=== PATIENT | male | born 1955 | race Caucasian/White ===

== ENCOUNTER 2017-07-23 20:36 | Emergency (ER) | payer BC ==
[~2017-07-23] VITALS: Ht 180.3 cm; Wt 81.6 kg
[2017-07-23] MEDS ORDERED: DEXAMETHASONE SOD PHOS 10 MG/1 ML VIAL INJ ONE (21:30)
[2017-07-23] MEDS ORDERED: CLINDAMYCIN PHOS 600 MG/ 4 ML VIAL IM ONE (21:30)
[2017-07-23] MEDS ORDERED: CEFTRIAXONE SOD 1 GM VIAL IM ONE (21:45)
[2017-07-23] MEDS ORDERED: CEFTRIAXONE SOD 1 GM VIAL ONE (21:47)
[2017-07-23] MEDS ORDERED: LIDOCAINE HCL 1% LOCAL INJ 20 ML VIAL ONE (21:48)
[2017-07-23 22:29] VITALS: BP 160/94
== END 2017-07-23 22:36 | disposition home or self-care (01) ==
LOC: ER 20:36
DX: K12.2 Cellulitis and abscess of mouth (principal); I10 Essential (primary) hypertension; Z85.47 Personal history of malignant neoplasm of testis
CPT/HCPCS: 99282; J0696; J1100; J2001

== ENCOUNTER 2018-01-14 13:07 | Observation (INO) | payer BC ==
[~2018-01-14] VITALS: Ht 180.3 cm; Wt 83.0 kg
[2018-01-14] MEDS ORDERED: ASPIRIN 81 MG CHEW TAB PO ONE ×2 (13:45→15:30)
[2018-01-14 13:48] LABS: BASOPHILS % 0.6 % (0.0-1.0); EOSINOPHILS # (AUTO) 0.1 (0.0-0.4); EOSINOPHILS % 1.7 % (0.0-6.0); HEMATOCRIT 48.6 % (38.2-49.6); HEMOGLOBIN 16.6 g/dL (14.0-18.0); LYMPHOCYTES % 28.3 % (18.0-39.1); MEAN CORPUSCULAR HGB CONC 34.2 g/dL (31-35); MEAN CORPUSCULAR VOLUME 93.6 fL (81-99); MONOCYTES # (AUTO) 0.6 (0.2-0.8); MONOCYTES % 8.4 % (4.4-11.3); NEUTROPHILS # (AUTO) 4.2 (2.1-6.9); NEUTROPHILS % 60.4 % (38.7-80.0); PLATELET COUNT 206 x10e3/uL (140-360); RED BLOOD COUNT 5.19 x10e6/uL (4.3-5.7); RED CELL DISTRIBUTION WIDTH 12.8 % (11.7-14.4)
[2018-01-14 13:52] LABS: INR 1.13; PROTHROMBIN TIME 13.6 seconds (11.9-14.5)
[2018-01-14 13:53] LABS: PARTIAL THROMBOPLASTIN TIME 26.6 seconds (23.8-35.5)
[2018-01-14 14:00] LABS: ALANINE AMINOTRANSFERASE 38 IU/L (0-55); ALBUMIN 4.2 g/dL (3.5-5.0); ALBUMIN/GLOBULIN RATIO 1.4 (0.8-2.0); ALKALINE PHOSPHATASE 57 IU/L (40-150); ANION GAP 13.1 mmol/L (8-16); BLOOD UREA NITROGEN 16 mg/dL (7-26); BUN/CREATININE RATIO 14 (6-25); CALCIUM 9.5 mg/dL (8.4-10.2); CARBON DIOXIDE 25 mmol/L (22-29); CHLORIDE 106 mmol/L (98-107); CREATINE KINASE 127 IU/L (30-200); CREATININE, SERUM 1.11 mg/dL (0.72-1.25); EST GLOMERULAR FILTRATION RATE > 60 ML/MIN (60-); GLUCOSE 115 mg/dL (74-118); POTASSIUM 4.1 mmol/L (3.5-5.1); SODIUM 140 mmol/L (136-145)
[2018-01-14] MEDS ORDERED: HYDRALAZINE HCL 25 MG TAB PO ONE (15:30)
[2018-01-14] MEDS ORDERED: ONDANSETRON HCL INJ 2 MG/ML VIAL IV PRN (15:30)
[2018-01-14] MEDS ORDERED: SODIUM CHLORIDE FLUSH 10 ML SYR INJ PRN (15:30)
[2018-01-14] MEDS ORDERED: ACETAMINOPHEN 325 MG TAB PO PRN (16:45)
[2018-01-14] MEDS ORDERED: HYDRALAZINE HCL 20 MG/ML VIAL IV PRN (16:45)
[2018-01-14] MEDS ORDERED: LISINOPRIL10 MG PO (16:47)
[2018-01-14 21:20] VITALS: BP 172/98
[2018-01-14 21:33] VITALS: BP 172/98
[2018-01-14] MEDS: HYDRALAZINE HCL 10 MG TAB PO SCH (22:21)
[2018-01-15] VITALS: BP 163/98
[2018-01-15 00:24] LABS: CREATINE KINASE 105 IU/L (30-200)
[2018-01-15 04:00] VITALS: BP 143/88
[2018-01-15 04:08] LABS: BASOPHILS % 0.4 % (0.0-1.0); EOSINOPHILS # (AUTO) 0.2 (0.0-0.4); EOSINOPHILS % 1.4 % (0.0-6.0); HEMATOCRIT 46.9 % (38.2-49.6); HEMOGLOBIN 16.3 g/dL (14.0-18.0); LYMPHOCYTES # (AUTO) 2.4 (1.0-3.2); LYMPHOCYTES % 23.2 % (18.0-39.1); MEAN CORPUSCULAR HEMOGLOBIN 32.3 pg (28-32); MEAN CORPUSCULAR HGB CONC 34.8 g/dL (31-35); MEAN CORPUSCULAR VOLUME 93.1 fL (81-99); MONOCYTES % 9.7 % (4.4-11.3); NEUTROPHILS # (AUTO) 6.7 (2.1-6.9); PLATELET COUNT 196 x10e3/uL (140-360); RED BLOOD COUNT 5.04 x10e6/uL (4.3-5.7); RED CELL DISTRIBUTION WIDTH 12.8 % (11.7-14.4)
[2018-01-15 04:15] LABS: ANION GAP 12.9 mmol/L (8-16); BLOOD UREA NITROGEN 16 mg/dL (7-26); BUN/CREATININE RATIO 18 (6-25); CALCIUM 9.2 mg/dL (8.4-10.2); CARBON DIOXIDE 23 mmol/L (22-29); CHLORIDE 108 mmol/L (98-107); CREATININE, SERUM 0.89 mg/dL (0.72-1.25); EST GLOMERULAR FILTRATION RATE > 60 ML/MIN (60-); GLUCOSE 96 mg/dL (74-118); MAGNESIUM 2.1 MG/DL (1.3-2.1); POTASSIUM 3.9 mmol/L (3.5-5.1); SODIUM 140 mmol/L (136-145)
[2018-01-15 04:17] LABS: CHOL/HDL RATIO 4.3 (3.9-4.7); CHOLESTEROL 142 MD/DL (0-199); CREATINE KINASE 102 IU/L (30-200); HDL CHOLESTEROL 33 MG/DL (40-60); LDL CHOLESTEROL 82 MG/DL (60-130); TRIGLYCERIDES 133 MG/DL (0-149)
[2018-01-15] MEDS: HYDRALAZINE HCL 10 MG TAB PO SCH ×2 (05:17→13:12)
[2018-01-15] MEDS ORDERED: HYDRALAZINE HCL10 MG PO (07:09)
[2018-01-15] MEDS ORDERED: ASPIRIN EC81 MG PO (07:09)
[2018-01-15] MEDS ORDERED: NORVASC10 MG PO (07:09)
[2018-01-15] MEDS ORDERED: FAMOTIDINE 20 MG TAB PO SCH (07:30)
[2018-01-15 08:20] VITALS: BP 178/89
[2018-01-15 08:26] VITALS: BP 178/89
[2018-01-15] MEDS ORDERED: LISINOPRIL 20 MG TAB PO SCH (09:00)
[2018-01-15] MEDS ORDERED: AMLODIPINE BESYLATE 10 MG TAB PO SCH (09:00)
[2018-01-15] MEDS ORDERED: ASPIRIN 81 MG ENTERIC COATED PO SCH (09:00)
[2018-01-15 12:19] VITALS: BP 174/83
[2018-01-15] MEDS ORDERED: NIFEDIPINE ER30 M1 PO (14:34)
[2018-01-15 16:16] VITALS: BP 155/80
--- NOTE | 2018-01-15 18:53 | Discharge Summary ---
ADMISSION DIAGNOSES 1. Uncontrolled hypertension. 2. Cannabis use. DISCHARGE DIAGNOSES 1. Uncontrolled hypertension. 2. Cannabis use. HISTORY: The patient has a history of hypertension and testicular cancer with chemo. Past surgical history includes testicular surgery. HOSPITAL COURSE: A 62-year-old male complains of high blood pressure since his yearly physical last Sunday. He does not remember the exact reading, but his doctor told him to double up his normal dose of lisinopril which would equal 20 mg a day. Yesterday, in the morning he took his blood pressure and it was 140, so he only took 10 mg, and then he started to feel a heaviness in his arms and legs, so he took his blood pressure again, and it was found to be 170/100. Prior to coming to the ER, he took an additional 10 mg of lisinopril. On admission to the ER, his blood pressure was 207/116. He denies chest pain, fever and syncope. On admission, the patient was resumed on his lisinopril and given hydralazine t.i.d. as well as Norvasc. EKG was normal sinus rhythm. Echo showed an EF of 55% to 60%. Troponins were negative x3. The patient got aspirin. The patient's blood pressure controlled on p.o. medicines. He will discharge home with nifedipine, aspirin and hydralazine as well as his home meds of lisinopril. He will follow up with his primary care physician in one to two weeks. The patient understands discharge instructions and agrees to plan. Vital signs stable. The patient afebrile. Dictated by: Hanane Valentin NP MARTINEZ SMYTH MD Job#: [id number]
== END 2018-01-15 18:06 | disposition home or self-care (01) ==
LOC: ER 13:07 → ERHOLD 15:36 → IMCU 21:20
PROVIDERS: ADMIT Internal Medicine; ATTEND Internal Medicine
DX: I10 Essential (primary) hypertension (principal); F12.10 Cannabis abuse, uncomplicated; Z82.3 Family history of stroke; Z83.3 Family history of diabetes mellitus; Z85.47 Personal history of malignant neoplasm of testis
CPT/HCPCS: 36415 ×2; 80048; 80053; 80061; 82550 ×2; 82553 ×2; 83735; 83880; 84484 ×2; 85025 ×2; 85610; 85730; 93005 ×2; 93306; 99284; G0378 ×2